=== PATIENT | female | born 1940 | race Caucasian/White ===

== ENCOUNTER 2020-08-12 13:24 | Outpatient (CLI) | payer MEDICARE, OTHER, SELFPAY ==
--- NOTE | ~2020-08-12 | XR_ITS ---
EXAMINATION: HAND-PAULETTE ARTHRITIS 3+VIEWS DATE: 08/12/2020 14:38 INDICATION: Rheumatoid arthritis TECHNIQUE: Posteroanterior, lateral, and oblique views of the left and of the right hands as well as a ballcatchers view of both hands were obtained. COMPARISON: None. FINDINGS: Bone alignment is normal at both hands. Diffuse osteopenia. No fracture. Mild polyarticular osteoarth ritis with symmetric typical distribution at both hands at the triscaphe, first carpometacarpal and m ultiple metacarpal and interphalangeal joints characterized by mild nonuniform joint space narrowing and/or tiny marginal osteophytes. No cortical erosions to suggest an inflammatory arthritis such as r heumatoid. IMPRESSION: 1. 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 No erosions to sugges t inflammatory arthritis such as rheumatoid. Reviewed, dictated and finalized at location A. KITCHEN HOME ECONOMIST IMPRESSION: 1. 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 No erosions to suggest inflammatory arthritis such as rheumatoid.
--- NOTE | ~2020-08-12 | XR_ITS ---
EXAMINATION: XR foot LT standing 2V, XR foot RT standing 2V DATE: 08/12/2020 14:38 INDICATION: Rheumatoid arthritis TECHNIQUE: 1. Standing dorsoplantar and lateral views of the left foot were obtained. 2. Standing dorsoplantar and lateral views of the right foot were obtained. COMPARISON: None. FINDINGS: Bilateral pes planus with collapse of the longitudinal plantar arches. Diffuse osteopenia. No fractur es. Mild polyarticular osteoarthritis or dressed by mild nonuniform joint space narrowing and/or tiny marginal osteophytes involving multiple joints in the bilateral mid and forefeet. No cortical erosio ns to suggest an inflammatory arthritis such as rheumatoid. Small bilateral Achilles and plantar calc aneal spurs. Soft tissues are unremarkable. No ankle joint effusions. IMPRESSION: 1. Mild polyarticular osteoarthritis at the bilateral mid and forefeet. Reviewed, dictated and finalized at location A. KEEPER IMPRESSION: 1. Mild polyarticular osteoarthritis at the bilateral mid and forefeet.
--- NOTE | ~2020-08-12 | XR_ITS ---
EXAMINATION: XR knee LT 3V, XR knee RT 3V DATE: 08/12/2020 14:38 INDICATION: Rheumatoid arthritis TECHNIQUE: 1. Standing AP, standing lateral and sunrise views of the left knee were obtained 2. Standing AP, standing lateral and sunrise views of the right knee were obtained COMPARISON: None. FINDINGS: Alignment is normal at both knees. No fracture. Osteoarthritis with mild joint space are at the late ral compartment of the right knee and medial side of the left patellofemoral compartment. Tiny margin al osteophytes in all 3 compartments of both knees. No erosions to suggest an inflammatory arthritis. Bilateral patellar enthesophytes. Soft tissues are unremarkable. No joint effusion/layering lipohema rthrosis at either knee. IMPRESSION: 1. 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 Reviewed, dictated and finalized at location A. DD[employer] SYSTEMS SOFTWARE DEVELOPER IMPRESSION: 1. 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
== END 2020-08-12 13:25 | disposition home or self-care (01) ==
PROVIDERS: PCP Internal Medicine Infectious Disease; Visit Provider Internal Medicine
DX: M05.79 Rheumatoid arthritis with rheumatoid factor of multiple sites without organ or systems involvement (principal); M19.072 Primary osteoarthritis, left ankle and foot; M19.071 Primary osteoarthritis, right ankle and foot; M17.0 Bilateral primary osteoarthritis of knee; M19.042 Primary osteoarthritis, left hand; M19.041 Primary osteoarthritis, right hand
CPT/HCPCS: 73130; 73562; 73620

== ENCOUNTER 2021-05-29 12:00 | Outpatient (CLI) | payer MEDICARE, OTHER, SELFPAY ==
--- NOTE | ~2021-05-29 | XR_ITS ---
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 COMPARISON: None. FINDINGS: The lung volumes are normal. There are is a diffuse peripheral interstitial pattern in the lungs with mild architectural distortion. No pleural effusion or pneumothorax. The heart size is norm al. IMPRESSION: 1. Chronic interstitial lung disease. Reviewed, dictated and finalized at location A.
== END 2021-05-29 12:01 | disposition home or self-care (01) ==
PROVIDERS: PCP Internal Medicine Infectious Disease; Visit Provider Internal Medicine
DX: M05.79 Rheumatoid arthritis with rheumatoid factor of multiple sites without organ or systems involvement (principal); J84.9 Interstitial pulmonary disease, unspecified
CPT/HCPCS: 71046

== ENCOUNTER 2023-02-15 13:26 | Outpatient (CLI) | payer MEDICARE, OTHER, SELFPAY ==
[2023-02-15 13:53] LABS: Basophils Absolute Auto 0.1 K/mm3 (0.0-0.1); Basophils Percent Auto 0.8 % (0.2-1.2); Eosinophils Absolute Auto 0.2 K/mm3 (0-0.3); Eosinophils Percent Auto 2.3 % (0-4.4); Hematocrit 31.5 % (37.0-47.0); Hemoglobin 9.8 g/dL (12.0-15.0); Immature Granulocyte Absolute 0.02 K/mm3 (0.00-0.031); Immature Granulocyte Percent A 0.3 % (0-0.5); Lymphocytes Absolute Auto 1.29 K/mm3 (0.9-3.2); Lymphocytes Percent Auto 17.6 % (18.3-44.2); Mean Corpuscular HGB Conc 31.1 g/dl (32-36); Mean Corpuscular Hemoglobin 32.5 pg (26-34); Mean Corpuscular Volume 104.3 fl (80-100); Mean Platelet Volume 8.8 fl (7.4-10.4); Monocytes Absolute Auto 0.8 K/mm3 (0.1-0.6); Platelet Count Result 304 k/mm3 (150-375); Red Blood Count 3.02 M/mm3 (4.2-5.4); Red Cell Distribution Width 13.9 % (11.5-14.5); White Blood Count 7.3 K/mm3 (4.5-10.0)
[2023-02-15 14:43] LABS: Iron 48 ug/dL (37-170)
[2023-02-15 14:46] LABS: Alanine Aminotransferase 13 U/L (6-35); Albumin Level 3.7 g/dL (3.5-5.1); Alkaline Phosphatase 92 U/L (38-126); Anion Gap 9 mmol/L (8-16); Aspartate Amino Transferase 18 U/L (14-36); Bilirubin,Total 0.6 mg/dL (0.2-1.3); Blood Urea Nitrogen 13 mg/dL (7-17); Calcium 8.2 mg/dL (8.4-10.2); Carbon Dioxide 27 mmol/L (22-30); Chloride 101 mmol/L (98-107); Estimated Glomerular Filt Rate > 60; Glucose 100 mg/dL (65-110); Potassium 3.7 mmol/L (3.4-5.0); Sodium 137 mmol/L (137-145)
[2023-02-15 14:55] LABS: Percent Iron Saturation 18 % (20-50)
[2023-02-15 15:55] LABS: Folic Acid 15.6 ng/mL (2.76->20)
[2023-02-20 22:07] LABS: Methylmalonic Acid 120 nmol/L (87-318)
== END 2023-02-15 13:27 | disposition home or self-care (01) ==
LOC: ANHLAB 13:28
PROVIDERS: PCP Internal Medicine Infectious Disease; Visit Provider Internal Medicine Hematology & Oncology
DX: D64.9 Anemia, unspecified (principal)
CPT/HCPCS: 36415; 80053; 82607; 82728; 82746; 83540; 83550; 83921; 84443; 85025

== ENCOUNTER 2023-02-20 06:41 | Outpatient (CLI) | payer MEDICARE, OTHER, SELFPAY ==
--- NOTE | ~2023-02-20 | CT_ITS ---
EXAMINATION: CT chest abdomen pelvis w con DATE: 02/20/2023 07:19 INDICATION: Abnormal weight loss. TECHNIQUE: Computed tomography (CT) of the chest, abdomen, and pelvis was performed with 100 mL Omnip aque 350 intravenous contrast. Automated exposure control and iterative reconstruction technique were employed. The dose-length product was 711.91 mGy-cm. COMPARISON: None FINDINGS: CHEST CT: The lung volumes are small. There is widespread septal thickening in the lungs associated with ground glass opacities with a peripheral predominance. There is mild honeycombing in lingula. No pleural eff usion. Cardiomegaly is noted. There is a large old myocardial infarction involving left ventricular a pex and septum with apical aneurysm. There is thrombus in left ventricular apex. There are coronary a rtery calcifications. No pericardial effusion. There is severe cervical and thoracic spondylosis. ABDOMEN/PELVIS CT: The liver is normal. There are gallstones in the gallbladder, which is normal in size. The spleen, pa ncreas, and adrenal glands are normal. There is cortical thinning of the kidneys. There is calcified atherosclerosis of the aorta and many of the other arteries. There are no dilated loops of bowel. The appendix is not visualized. There are no pathologically enlarged lymph nodes. There is no free intra peritoneal fluid. There is severe right hip osteoarthritis and moderate left hip osteoarthritis. Ther e is severe lumbar spondylosis. IMPRESSION: 1. Chronic interstitial lung disease in a pattern of usual interstitial pneumonia (UIP). 2. 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 Reviewed, dictated and finalized at location A. IMPRESSION: 1. Chronic interstitial lung disease in a pattern of usual interstitial pneumon ia (UIP). 2. 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
[2023-02-20 09:10] LABS: Basophils Absolute Auto 0.1 K/mm3 (0.0-0.1); Basophils Percent Auto 0.7 % (0.2-1.2); Eosinophils Absolute Auto 0.1 K/mm3 (0-0.3); Eosinophils Percent Auto 1.1 % (0-4.4); Hematocrit 31.6 % (37.0-47.0); Hemoglobin 9.8 g/dL (12.0-15.0); Immature Granulocyte Absolute 0.04 K/mm3 (0.00-0.031); Immature Granulocyte Percent A 0.5 % (0-0.5); Lymphocytes Absolute Auto 1.22 K/mm3 (0.9-3.2); Mean Corpuscular Hemoglobin 32.2 pg (26-34); Mean Corpuscular Volume 103.9 fl (80-100); Mean Platelet Volume 8.8 fl (7.4-10.4); Monocytes Absolute Auto 0.9 K/mm3 (0.1-0.6); Monocytes Percent Auto 9.8 % (2.6-8.5); Neutrophils Absolute Auto 6.5 K/mm3 (1.3-6.7); Neutrophils Percent Auto 73.9 % (45.5-73.1); Platelet Count Result 346 k/mm3 (150-375); Red Blood Count 3.04 M/mm3 (4.2-5.4); Red Cell Distribution Width 13.9 % (11.5-14.5); White Blood Count 8.7 K/mm3 (4.5-10.0)
[2023-02-20 09:36] LABS: Iron 19 ug/dL (37-170)
[2023-02-20 09:37] LABS: Alanine Aminotransferase 13 U/L (6-35); Alkaline Phosphatase 94 U/L (38-126); Anion Gap 9 mmol/L (8-16); Aspartate Amino Transferase 20 U/L (14-36); Bilirubin,Total 0.8 mg/dL (0.2-1.3); Blood Urea Nitrogen 11 mg/dL (7-17); Calcium 8.5 mg/dL (8.4-10.2); Carbon Dioxide 27 mmol/L (22-30); Chloride 99 mmol/L (98-107); Estimated Glomerular Filt Rate > 60; Glucose 96 mg/dL (65-110); Sodium 135 mmol/L (137-145)
[2023-02-20 09:49] LABS: Percent Iron Saturation 7 % (20-50)
[2023-02-20 10:41] LABS: Folic Acid 18.9 ng/mL (2.76->20)
[2023-02-24 16:30] LABS: Methylmalonic Acid 114 nmol/L (87-318)
== END 2023-02-20 06:42 | disposition home or self-care (01) ==
PROVIDERS: PCP Internal Medicine Infectious Disease; Visit Provider Internal Medicine Hematology & Oncology
DX: D64.9 Anemia, unspecified (principal); R63.4 Abnormal weight loss; J84.9 Interstitial pulmonary disease, unspecified; I25.2 Old myocardial infarction
CPT/HCPCS: 36415; 71260; 74177; 80053; 82607; 82728; 82746; 83540; 83550; 83921; 84443; 85025; Q9967

== ENCOUNTER 2023-08-12 11:23 | Outpatient (CLI) | payer MEDICARE, OTHER, SELFPAY ==
--- NOTE | ~2023-08-12 | XR_ITS ---
Clinical Indication: Weight loss PA and lateral views of the chest: Comparison: 05/29/2021 Findings: Chronic interstitial disease present. No focal consolidation or pleural effusion. Cardiome diastinal silhouette is within normal limits. Bones and soft tissues are unremarkable. Impression: Chronic pulmonary interstitial disease. Reviewed, dictated and finalized at [facility]. PMENT SPECIALIST Impression: Chronic pulmonary interstitial disease.
[2023-08-12 13:12] LABS: Appearance Urine Turbid (Clear); Bacteria Urine 4+ /hpf; Bilirubin Urine Negative (Negative); Blood Urine 1+ (Negative); Color Urine Yellow (Yellow); Glucose Urine UA Negative (Negative); Ketones Urine Negative (Negative); Leukocyte Esterase Ur 2+ LEU/UL (Negative); Nitrate Urine Negative (Negative); Protein Urine Trace mg/dL (Negative); Specific Grav Ur 1.018 (1.001-1.035); Squamous Epithelial Cell Urine Moderate /hpf (Few); WBC Urine >100 /hpf
[2023-08-12 13:20] LABS: Add Urine Microscopic? YES
== END 2023-08-12 11:24 | disposition home or self-care (01) ==
PROVIDERS: PCP Internal Medicine Infectious Disease; Visit Provider Internal Medicine
DX: M06.09 Rheumatoid arthritis without rheumatoid factor, multiple sites (principal); R63.4 Abnormal weight loss
CPT/HCPCS: 71046; 81001; 87086; 87088

== ENCOUNTER 2023-10-15 10:40 | Outpatient (CLI) | payer MEDICARE, OTHER, SELFPAY ==
[2023-10-15 11:45] LABS: Hematocrit 35.5 % (37.0-47.0); Mean Corpuscular Hemoglobin 29.9 pg (26-34); Mean Corpuscular Volume 96.5 fl (80-100); Platelet Count Result 384 k/mm3 (150-375); Red Blood Count 3.68 M/mm3 (4.2-5.4); Red Cell Distribution Width 13.6 % (11.5-14.5)
[2023-10-15 12:00] LABS: Alanine Aminotransferase 9 U/L (6-35); Albumin Level 3.5 g/dL (3.5-5.1); Alkaline Phosphatase 119 U/L (38-126); Anion Gap 7 mmol/L (8-16); Aspartate Amino Transferase 21 U/L (14-36); Bilirubin,Total 0.4 mg/dL (0.2-1.3); Blood Urea Nitrogen 12 mg/dL (7-17); CRP 5.8 mg/dL (<1.0); Calcium 8.6 mg/dL (8.4-10.2); Carbon Dioxide 29 mmol/L (22-30); Chloride 102 mmol/L (98-107); Estimated Glomerular Filt Rate > 60; Glucose 96 mg/dL (65-110); Potassium 4.2 mmol/L (3.4-5.0); Sodium 138 mmol/L (137-145)
[2023-10-15 12:22] LABS: Erythrocyte Sedimentation Rate 109 mm/hr (0-20)
== END 2023-10-15 10:41 | disposition home or self-care (01) ==
PROVIDERS: PCP Internal Medicine Infectious Disease; Visit Provider Internal Medicine
DX: M06.09 Rheumatoid arthritis without rheumatoid factor, multiple sites (principal); D50.9 Iron deficiency anemia, unspecified
CPT/HCPCS: 36415; 80053; 81001; 85027; 85652; 86140

== ENCOUNTER 2023-10-16 12:15 | Outpatient (CLI) | payer MEDICARE, OTHER, SELFPAY ==
[2023-10-16 13:38] LABS: Add Urine Microscopic? YES; Appearance Urine Clear (Clear); Bacteria Urine Rare /hpf; Bilirubin Urine Negative (Negative); Blood Urine Negative (Negative); Color Urine Yellow (Yellow); Glucose Urine UA Negative (Negative); Ketones Urine Negative (Negative); Leukocyte Esterase Ur 2+ LEU/UL (Negative); Need Manual Microscopic Reviewed; Nitrate Urine Negative (Negative); Non Pathogenic Casts 0-2; Protein Urine Negative (Negative); Specific Grav Ur 1.015 (1.001-1.035); Squamous Epithelial Cell Urine Few /hpf (Few); WBC Urine 0-5 /hpf
== END 2023-10-16 12:16 | disposition home or self-care (01) ==
PROVIDERS: PCP Internal Medicine Infectious Disease; Visit Provider Internal Medicine
DX: M06.09 Rheumatoid arthritis without rheumatoid factor, multiple sites (principal)
CPT/HCPCS: 81001